=== PATIENT | male | born 1965 | race Caucasian/White ===

== ENCOUNTER 2019-07-16 15:32 | Emergency (ER) | payer MEDICAID, SELFPAY ==
[2019-07-16] VITALS (8 sets, daily range): BP systolic 109–140; BP diastolic 69–89; PULSE 78–96; RESP 16–19; TEMP 36.6; O2SAT 92–97
--- NOTE | 2019-07-16 15:44 | W.ED.GENAD ---
Discharge Plan Disposition Patient Disposition: HOME Condition: Improving Discharge Details Chief Complaint: OD/Poison Clinical Impression: Polysubstance abuse, Back pain Primary Care Provider: Unknown,Unknown ED Provider: Shayy Keller Home Meds and New Rx's Prescriptions: New methocarbamol [Robaxin-750] 750 mg tablet 750 mg PO TID PRN (Reason: muscle spasm) Qty: 10 RF: 0 Discharge Instructions Instructions: Back Pain (ED) Additional Instructions: Alternate Tylenol and Motrin as needed and directed for pain. Take the muscle relaxers as needed and directed. Follow-up with your primary care doctor next week. Return to the emergency department if you develop any worsening or new concerning symptoms. Discharge Data Discharge Physician: Shayy Keller Medical Decision Making 54-year-old male with history of hepatitis C who states he was clean from cocaine and heroin for 8 months and living in a sober house who states he relapsed yesterday with IV heroin and cocaine use. States he has a period yesterday which he does not remember and is unsure of injury. Vitals within normal limits. EKG notes a rate of 98, sinus with no acute ST ischemic changes. Patient with airway intact and able to answer questions but appears mildly drowsy. No obvious head trauma. C-spine and L-spine nontender. Anterior chest tender. Abdomen soft nontender. Moving all extremities without evidence of deformity. As there is a period of time yesterday he does not recall, will obtain CT head/C-spine/chest/abdomen/pelvis/T and L-spine to rule out acute process or trauma, check screening labs including acetaminophen, salicylate, alcohol and UDS and give a dose of Compazine, Ativan and fluids and reassess. 1945 --labs and imaging reviewed and no acute significant findings. Patient was given Toradol and Decadron for his back pain and symptoms improved. He is able to ambulate around the ED. He is advised to drink plenty fluids, get plenty of rest, avoid illicit drug use, follow-up with his primary care doctor return to the ER with any concerns. Medical Records Medical records reviewed: Yes I reviewed the patient's medical records. Imaging Data Radiologic Study: Radiologist's impression: CT Head Without Contrast Exam date and time: 07/16/2019 4:40 PM Clinical history: 54 years old, male; Pain; Other: S/P possible injury TECHNIQUE: Imaging protocol: Computed tomography of the head without contrast. Radiation optimization: All CT scans at this facility use at least one of these dose optimization techniques: automated exposure control; mA and/or kV adjustment per patient size (includes targeted exams where dose is matched to clinical indication); or iterative reconstruction. COMPARISON: No relevant prior studies available. FINDINGS: Brain: Normal. No hemorrhage. No significant white matter disease. No edema.The cortical/white matter interfaces are preserved throughout the brain. Ventricles: Normal. No ventriculomegaly. Bones/joints: There is no evidence of acute fracture. There has been plate and screw fixation of the left superior orbital rim. Sinuses: Visualized sinuses are unremarkable. No fluid levels. Mastoid air cells: Visualized mastoid air cells are well aerated. Soft tissues: Unremarkable. IMPRESSION: No evidence of intracranial hemorrhage or calvarial fracture. CT Cervical Spine Without Contrast Exam date and time: 07/16/2019 4:40 PM Clinical history: 54 years old, male; Pain; Other: S/P possible injury TECHNIQUE: Imaging protocol: Computed tomography images of the cervical spine without contrast. Radiation optimization: All CT scans at this facility use at least one of these dose optimization techniques: automated exposure control; mA and/or kV adjustment per patient size (includes targeted exams where dose is matched to clinical indication); or iterative reconstruction. COMPARISON: No relevant prior studies available. FINDINGS: Limitations: The examination is degraded by motion artifact. Vertebrae: No acute fracture. Normal sagittal alignment. Discs/Spinal canal/Neural foramina: No spinal stenosis. No neural foraminal narrowing. Soft tissues: The prevertebral soft tissues are normal. Lungs: There is pleural scarring in the lung apices. IMPRESSION: No definite evidence of fracture or dislocation, however, the examination is degraded by motion artifact. CT Angiography Chest With Contrast Exam date and time: 07/16/2019 4:50 PM Clinical history: 54 years old, male; Pain; Other: S/P possible injury TECHNIQUE: Imaging protocol: Computed tomographic angiography of the chest with intravenous contrast. 3D rendering: MIP reconstructed images were created and reviewed. Radiation optimization: All CT scans at this facility use at least one of these dose optimization techniques: automated exposure control; mA and/or kV adjustment per patient size (includes targeted exams where dose is matched to clinical indication); or iterative reconstruction. Contrast material: OMNIPAQUE 350; Contrast volume: 100 ml; Contrast route: IV; COMPARISON: No relevant prior studies available. FINDINGS: Limitations: The examination is degraded by motion artifact. Pulmonary arteries: There are no intraluminal filling defects in the pulmonary arteries. Aorta: The aorta is normal in caliber with no evidence of aneurysm or dissection. There is pulsation artifact at the level of the aortic root. Lungs: There are no focal air space opacities. Pleural space: There is biapical pleural thickening. There is no evidence of pneumothorax.No evidence of a pleural effusion. Heart: Unremarkable. No cardiomegaly. No pericardial effusion. Mediastinum: No evidence of a mediastinal hematoma. The trachea and main bronchi are patent. The esophagus is unremarkable. Lymph nodes: Unremarkable. No enlarged lymph nodes. Bones/joints: There are healed or healing fractures of the fourth ribs bilaterally.The spine demonstrates mild degenerative changes at multiple levels. There is an S-shaped scoliosis.No acute osseous abnormality is identified. Soft tissues: Unremarkable. IMPRESSION: 1. There is no evidence of mediastinal hematoma, pneumothorax, pleural effusion or pulmonary contusion. 2. There is no evidence of acute fracture. Remainder of non-emergent findings as described above. CT Abdomen And Pelvis With Contrast Exam date and time: 07/16/2019 4:50 PM Clinical history: 54 years old, male; Pain; Other: S/P possible injury TECHNIQUE: Imaging protocol: Computed tomography of the abdomen and pelvis with intravenous contrast. Radiation optimization: All CT scans at this facility use at least one of these dose optimization techniques: automated exposure control; mA and/or kV adjustment per patient size (includes targeted exams where dose is matched to clinical indication); or iterative reconstruction. COMPARISON: No relevant prior studies available. FINDINGS: Limitations: The examination is degraded by motion artifact. Liver: There are no focal hepatic lesions.No evidence of laceration or subcapsular collection. Gallbladder and bile ducts: Normal. No calcified stones. No ductal dilation. Pancreas: Normal. No ductal dilation. Spleen: The spleen is normal. No evidence of laceration or subcapsular collection. Adrenals: Normal. No mass. Kidneys and ureters: The left kidney demonstrates an extrarenal pelvis. 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 The kidneys are otherwise unremarkable.No evidence of laceration or subcapsular collection. Stomach and bowel: Unremarkable. No obstruction. No mucosal thickening. Appendix: No evidence of appendicitis. Intraperitoneal space: Unremarkable. No free air. No significant fluid collection. Retroperitoneal space: No retroperitoneal hemorrhage. Vasculature: The aorta is normal in caliber.The vasculature demonstrates diffuse mild atherosclerotic calcification. Lymph nodes: There are multiple small and mildly enlarged retroperitoneal lymph nodes measuring up to 13 mm short axis dimension (34/7). Bladder: Unremarkable as visualized. Reproductive: Unremarkable as visualized. 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 There is degenerative disc disease L5-S1 with reactive endplate sclerosis, endplate erosions and small marginal osteophytes.The remaining skeletal structures show no evidence of acute fracture or other acute process. There is no evidence of acute fracture. Soft tissues: There is a small uncomplicated fat-containing umbilical hernia. IMPRESSION: 1. No evidence of visceral trauma. 2. There is no evidence of acute fracture. Remainder of non-emergent findings as described above. Lab Data Lab results reviewed: Yes I reviewed the patient's lab results. Labs: Laboratory Tests Range/Units 07/16/19 07/16/19 07/16/19 16:00 16:00 16:00 WBC (4.4-10.8) k/cumm 9.67 RBC (4.50-6.00) m/cumm 4.61 Hgb (13.5-17.5) g/dL 14.6 Hct (40.0-50.0) % 41.9 MCV (80-95) fL 90.9 MCH (27.0-33.0) pg 31.7 MCHC (32.0-36.0) g/dL 34.8 RDW (11.8-14.1) % 12.5 Plt Count (130-400) x1000/uL 115 L MPV (8.0-11.0) fL 10.5 Immature Gran % 0.1 Neutrophils % 85.4 Lymphocytes % 8.8 Monocytes % 5.5 Eosinophils % 0.0 Basophils % 0.2 Absolute Neutrophils (1.2-6.7) k/cumm 8.26 H Absolute Lymphocytes (1.2-3.4) k/cumm 0.85 L Absolute Monocytes (0.11-0.7) k/cumm 0.53 Absolute Eosinophils (0.0-0.7) k/cumm 0.00 Absolute Basophils (0.0-0.2) k/cumm 0.02 Sodium (136-145) mmol/L 139 Potassium (3.5-5.1) mmol/L 4.2 Chloride (98-107) mmol/L 102 Carbon Dioxide (21.0-32.0) mmol/L 30.0 Anion Gap (3-11) mmol/L 7.0 BUN (7-18) mg/dL 31 H Creatinine (0.70-1.30) mg/dL 1.08 Estimated GFR/1.73 m2 (mL/min/1.73m2) >= 60.00 Glucose (70-100) mg/dL 106 H Calcium (8.5-10.1) mg/dL 9.5 Magnesium (1.8-2.4) mg/dL 1.7 L Total Bilirubin (0.2-1.0) mg/dL 2.0 H AST (15-37) U/L 102 H ALT (16-63) U/L 40 Alkaline Phosphatase (46-116) U/L 45 L Troponin I (0.00-0.06) ng/mL < 0.05 Total Protein (6.4-8.2) g/dL 8.3 H Albumin (3.4-5.0) g/dL 4.1 Urine Color (Yellow) Urine Clarity (Clear) Urine pH (5-8) Ur Specific [place] (1.005-1.025) Urine Protein (Negative) mg/dL Urine Ketones (Negative) mg/dL Urine Blood (Negative) Urine Nitrite (Negative) Urine Bilirubin (Negative) Urine Urobilinogen (Up TO 0.2) EU/dL Ur Leukocyte Esterase (Negative) Urine RBC (0-2) Urine WBC (0-5) HPF Ur Epithelial Cells (Negative) HPF Urine Crystals (Negative) HPF Urine Bacteria (Negative) HPF Urine Casts (Negative) LPF Urine Mucus (Negative) Ur Culture Indicated? Urine Glucose (Negative) mg/dL Salicylates (2.8-20.0) mg/dL < 2.8 L Urine Opiates Screen (Negative) Urine Methadone Screen (Negative) Acetaminophen (10-30) ug/mL < 2 L Ur Barbiturates Screen (Negative) Ur Tricyclics Screen (Negative) Ur Amphetamines Screen (Negative) U Benzodiazepines Scrn (Negative) Urine Cocaine Screen (Negative) Ur THC Screen (Negative) Ethyl Alcohol (<3) mg/dL < 3.0 Range/Units 07/16/19 07/16/19 18:51 18:51 WBC (4.4-10.8) k/cumm RBC (4.50-6.00) m/cumm Hgb (13.5-17.5) g/dL Hct (40.0-50.0) % MCV (80-95) fL MCH (27.0-33.0) pg MCHC (32.0-36.0) g/dL RDW (11.8-14.1) % Plt Count (130-400) x1000/uL MPV (8.0-11.0) fL Immature Gran % Neutrophils % Lymphocytes % Monocytes % Eosinophils % Basophils % Absolute Neutrophils (1.2-6.7) k/cumm Absolute Lymphocytes (1.2-3.4) k/cumm Absolute Monocytes (0.11-0.7) k/cumm Absolute Eosinophils (0.0-0.7) k/cumm Absolute Basophils (0.0-0.2) k/cumm Sodium (136-145) mmol/L Potassium (3.5-5.1) mmol/L Chloride (98-107) mmol/L Carbon Dioxide (21.0-32.0) mmol/L Anion Gap (3-11) mmol/L BUN (7-18) mg/dL Creatinine (0.70-1.30) mg/dL Estimated GFR/1.73 m2 (mL/min/1.73m2) Glucose (70-100) mg/dL Calcium (8.5-10.1) mg/dL Magnesium (1.8-2.4) mg/dL Total Bilirubin (0.2-1.0) mg/dL AST (15-37) U/L ALT (16-63) U/L Alkaline Phosphatase (46-116) U/L Troponin I (0.00-0.06) ng/mL Total Protein (6.4-8.2) g/dL Albumin (3.4-5.0) g/dL Urine Color (Yellow) Yellow Urine Clarity (Clear) Clear Urine pH (5-8) 6.5 Ur Specific [place] (1.005-1.025) <= 1.005 Urine Protein (Negative) mg/dL 30 H Urine Ketones (Negative) mg/dL 15 H Urine Blood (Negative) Moderate H Urine Nitrite (Negative) Negative Urine Bilirubin (Negative) Negative Urine Urobilinogen (Up TO 0.2) EU/dL 0.2 Ur Leukocyte Esterase (Negative) Negative Urine RBC (0-2) 20-50 H Urine WBC (0-5) HPF Negative Ur Epithelial Cells (Negative) HPF Few Urine Crystals (Negative) HPF Negative Urine Bacteria (Negative) HPF Negative Urine Casts (Negative) LPF Negative Urine Mucus (Negative) Negative Ur Culture Indicated? No Urine Glucose (Negative) mg/dL Negative Salicylates (2.8-20.0) mg/dL Urine Opiates Screen (Negative) Negative Urine Methadone Screen (Negative) Negative Acetaminophen (10-30) ug/mL Ur Barbiturates Screen (Negative) Negative Ur Tricyclics Screen (Negative) Negative Ur Amphetamines Screen (Negative) Negative U Benzodiazepines Scrn (Negative) Negative Urine Cocaine Screen (Negative) Positive A Ur THC Screen (Negative) Negative Ethyl Alcohol (<3) mg/dL ECG Data Attestation: I personally reviewed and interpreted this ECG (s) as follows: Interpretation: Rate of 98, sinus, no acute ST elevation or depression. CO 136. QTc 462. QRS 94. HPI General Mode of arrival: ambulatory. Date/Time Provider Initiated Documentation: 07/16/19 16:00. Limitations to Documentation: no limitations. Information obtained by: patient. HPI Narrative: Patient is a 54-year-old male with a history of hepatitis C who has been sober from cocaine and heroin for the past 8 months and living in a sober house presents after relapse with heroin and cocaine since yesterday. Patient states he injected heroin last night and injected cocaine this morning and also injected heroin 2 hours ago prior to arrival. He denies any other drug use or alcohol use. He states he remembers going with people he does not know sometime on Sunday night and does not recall anything about yesterday until late evening when his memory is fuzzy and he was laying in a bed in someone's house and could not get up due to headache and nausea. Patient states today he attempted to get out of the same bed and felt dizzy and pressure in his chest. He states that he mainly feels nauseous, with headache and lower back pain. He denies any chest pain at present. He denies any known injury. He states he was able to ambulate out of this house today and go to a nearby house and called 911. Related Data Home Medications Medication Instructions Recorded Confirmed methocarbamol [Robaxin-750] 750 mg PO TID PRN #10 tab 07/16/19 Previous Rx's Medication Instructions Recorded methocarbamol [Robaxin-750] 750 mg PO TID PRN #10 tab 07/16/19 Allergies Allergy/AdvReac Type Severity Reaction Status Date / Time acetaminophen [From Vicodin] Allergy Nausea Unverified 07/16/19 15:42 hydrocodone [From Vicodin] Allergy Nausea Unverified 07/16/19 15:42 shellfish derived Allergy Anaphylaxsi Unverified 07/16/19 15:42 s General Stated Complaint: OD/Poison LIONEL: 3 Review of Systems Review of Systems ROS Unobtainable: All systems reviewed & are unremarkable except as noted in HPI and below Constitutional Constitutional: Reports as per HPI, Denies chills, Reports fatigue, Denies fever(s) and Reports headache(s) Eyes Eyes: Denies blurry vision ENT Ears, Nose, Mouth, and Throat: Denies dizziness, Reports headache(s), Denies sore throat and Denies throat swelling Cardiovascular Cardiovascular: Reports chest pain and Denies dyspnea Respiratory Respiratory: Denies cough and Denies dyspnea Gastrointestinal Gastrointestinal: Denies abdominal pain, Denies diarrhea and Denies vomiting Genitourinary Genitourinary: Denies hematuria and Denies dysuria Musculoskeletal Musculoskeletal: Reports back pain and Denies numbness Integumentary/Breasts Skin/Breast: Denies lesions and Denies rash Neurologic Neurologic: Denies dizziness, Reports headache(s), Denies focal weakness and Denies numbness Endocrine Endocrine: Reports fatigue Allergic/Immunologic Allergic/Immunologic: Denies throat swelling [facility] Medical History (Updated 07/16/19 @ 16:04 by Shayy Keller DO) Hepatitis C (Chronic) Surgical History (Updated 07/16/19 @ 16:05 by Shayy Keller DO) History of craniotomy (Acute) History of facial surgery (Acute) Social History Smoking/Tobacco Use Status: Current every day Alcohol Intake: never Substance use type: marijuana, crack/cocaine and heroin Do you feel safe in your relationship?: Yes Exam Const General: cooperative and no acute distress Orientation: alert, awake and oriented x3 HENMT Head: normal to inspection Ears: hearing grossly normal bilaterally, external ears normal and TM's normal bilaterally General nose exam: external nose normal Face and sinus: normal facial exam Mouth: oral mucosae normal Teeth and gingiva: dentition normal Throat: posterior oropharynx normal Eyes General: appearance normal, both eyes and all related structures Eyelids: eyelids normal Pupils: PERRL EOM: EOM intact bilaterally Neck Neck: normal visual inspection Lymphatic: no lymphadenopathy noted Chest Chest: normal inspection of the chest and tenderness (Left and right anterior) Resp Effort & Inspection: normal respiratory effort and able to speak in complete sentences Auscultation: clear to auscultation bilaterally Cardio Rate: regular rate Rhythm: regular rhythm GI Inspection: normal to inspection and no abdominal wall ecchymosis Palpation: soft, not firm, no guarding, no hepatosplenomegaly, no masses and nontender Auscultation: normal bowel sounds Back/Spine/Pelvis Back: no CVA tenderness Cervical Spine: cervical spinal tenderness Thoracic/Lumbar Spine: No thoracic spinal tenderness and lumbar spinal tenderness Pelvis: no pain with anterior-posterior compression Skin General skin exam: no rashes or lesions noted Neuro General: alert and awake Cognition: normal cognition Speech: speech normal Gait: normal gait Motor: muscle tone normal throughout Sensory Exam: no sensory deficits noted Extrem General: normal to inspection, full ROM and normal capillary refill Other: Full range of motion bilateral upper and lower extremities without significant trauma or deformity noted. Some left anterior hip pain with range of motion. Well-healed scar infusion right anterior ankle without new trauma noted. Bilateral distal pulses intact. Psych Appearance: grossly normal Mental Status: mental status grossly normal Speech and Movement: speech and movement normal Affect: normal affect Thought Process: normal Course Vital Signs Vital signs: Vital Signs Temperature 97.9 F 07/16/19 15:31 Pulse 96 H 07/16/19 15:31 Respiratory Rate 18 07/16/19 15:31 Blood Pressure 126/89 07/16/19 15:31 Pulse Oximetry 97 07/16/19 15:31 Temperature 97.9 F 07/16/19 15:31 Temperature Source Skin 07/16/19 15:31 Pulse 96 H 07/16/19 15:31 Respiratory Rate 18 07/16/19 15:40 Respiratory Effort Non-Labored 07/16/19 15:40 Respiratory Depth Normal 07/16/19 15:40 Respiratory Pattern Normal 07/16/19 15:40 Blood Pressure 126/89 07/16/19 15:31 Blood Pressure Position Supine 07/16/19 15:31 Pulse Oximetry 97 07/16/19 15:31 Oxygen Delivery Method Room Air 07/16/19 15:31 Oxygen Flow Rate 0 07/16/19 15:31
--- NOTE | 2019-07-16 15:51 | NUR.NOTE ---
Nursing Note: MD Keller at bedside
--- NOTE | 2019-07-16 15:52 | NUR.NOTE ---
Nursing Note: Difficulty obtaining IV access. Additional RN at bedside with ultrasound
[2019-07-16] MEDS: LORazepam 2 MG/ML VIAL 0.5 MG IVP (16:14)
[2019-07-16] MEDS: Prochlorperazine 10 MG/2 ML VIAL IVP (16:14)
[2019-07-16] MEDS: Normal Saline 1,000 ML 1000 ML IV (16:15)
[2019-07-16 16:16] LABS: Abs Immature Grans 0.01 k/cumm (0.0-0.09); Absolute Basophil Count 0.02 k/cumm (0.0-0.2); Absolute Lymphocyte Count 0.85 k/cumm (1.2-3.4); Absolute Monocyte Count 0.53 k/cumm (0.11-0.7); Absolute Neutrophil Count 8.26 k/cumm (1.2-6.7); Basophils % 0.2; HCT 41.9 % (40.0-50.0); HGB 14.6 g/dL (13.5-17.5); Immature Grans % 0.1; Lymphocytes % 8.8; Mean Corp. HGB Concentration 34.8 g/dL (32.0-36.0); Mean Corpuscular Hemoglobin 31.7 pg (27.0-33.0); Mean Corpuscular Volume 90.9 fL (80-95); Mean Platelet Volume 10.5 fL (8.0-11.0); Monocytes % 5.5; Neutrophils % 85.4; Platelet Count 115 x1000/uL (130-400); RBC 4.61 m/cumm (4.50-6.00); RBC Distribution Width 12.5 % (11.8-14.1); White Blood Cell Count 9.67 k/cumm (4.4-10.8)
--- NOTE | 2019-07-16 16:30 | NUR.NOTE ---
Nursing Note: pt to ct with RN on monitor.
[2019-07-16 16:32] LABS: ALT 40 U/L (16-63); AST 102 U/L (15-37); Albumin 4.1 g/dL (3.4-5.0); Alkaline Phosphatase 45 U/L (46-116); BUN 31 mg/dL (7-18); CREATININE 1.08 mg/dL (0.70-1.30); Calcium 9.5 mg/dL (8.5-10.1); Chloride 102 mmol/L (98-107); Glucose 106 mg/dL (70-100); Magnesium 1.7 mg/dL (1.8-2.4); Potassium 4.2 mmol/L (3.5-5.1); Sodium 139 mmol/L (136-145); Total Protein 8.3 g/dL (6.4-8.2)
[2019-07-16 16:35] LABS: Troponin I < 0.05 ng/mL (0.00-0.06)
[2019-07-16] MEDS: Omnipaque 350 MG/ML 100 ML BTL IJ (16:57)
--- NOTE | 2019-07-16 17:00 | DI.CT_ITS ---
EXAM: CT CHEST PE ABD PELVIS W CLINICAL HISTORY: s/p possible fall, r/o acute process. TECHNIQUE: Post IV contrast. No oral contrast. COMPARISON: No exams were available for comparison FINDINGS: The exam is limited by patient motion. The patient was unable to cooperate with the exam. No gross pulmonary emboli are seen. The heart size is normal. The aorta is normal in diameter. The re is no pneumothorax, pleural or pericardial effusions. No acute rib or thoracic spine fracture is visible. Scoliosis is present. There is no evidence of liver, splenic or renal lacerations or contusions. There is no free air or f ree fluid. There is no bowel dilatation. The bladder appears intact. The pancreas, gallbladder and adrenals are unremarkable. The abdominal aorta and iliac arteries appear intact. L5 spondylolysis and slight spondylolisthesis is present. This is likely old. There is no acute spinal or pelvic fra cture. IMPRESSION: No acute abnormality in the chest, abdomen or pelvis.
--- NOTE | 2019-07-16 17:00 | DI.CT_ITS ---
EXAM: CT HEAD CERVICAL SPINE WO CLINICAL HISTORY: s/p possible injury, r/o acute process. TECHNIQUE: Noncontrast COMPARISON: No exams were available for comparison. FINDINGS: Head CT: No intracranial hemorrhage or skull fracture is seen. The ventricles are normal in size. T he sinuses and mastoid air cells appear clear. Cervical spine CT: The exam is limited by motion artifact. No fracture or subluxation is seen. The re are mild degenerative disc changes. IMPRESSION: Negative head CT. Limited exam due to motion artifact. No evidence of fracture.
[2019-07-16 17:05] LABS: Salicylate < 2.8 mg/dL (2.8-20.0)
[2019-07-16 17:10] LABS: ETHANOL BLOOD < 3.0 mg/dL (<3)
--- NOTE | 2019-07-16 17:25 | DI.VRAD_ITS ---
PROCEDURE INFORMATION: Exam: CT Head Without Contrast Exam date and time: 07/16/2019 4:40 PM Clinical history: 54 years old, male; Pain; Other: S/P possible injury TECHNIQUE: Imaging protocol: Computed tomography of the head without contrast. Radiation optimization: All CT scans at this facility use at least one of these dose optimization techniques: automated exposure control; mA and/or kV adjustment per patient size (includes targeted exams where dose is matched to clinical indication); or iterative reconstruction. COMPARISON: No relevant prior studies available. FINDINGS: Brain: Normal. No hemorrhage. No significant white matter disease. No edema.The cortical/white matter interfaces are preserved throughout the brain. Ventricles: Normal. No ventriculomegaly. Bones/joints: There is no evidence of acute fracture. There has been plate and screw fixation of the left superior orbital rim. Sinuses: Visualized sinuses are unremarkable. No fluid levels. Mastoid air cells: Visualized mastoid air cells are well aerated. Soft tissues: Unremarkable. IMPRESSION: No evidence of intracranial hemorrhage or calvarial fracture. PROCEDURE INFORMATION: Exam: CT Cervical Spine Without Contrast Exam date and time: 07/16/2019 4:40 PM Clinical history: 54 years old, male; Pain; Other: S/P possible injury TECHNIQUE: Imaging protocol: Computed tomography images of the cervical spine without contrast. Radiation optimization: All CT scans at this facility use at least one of these dose optimization techniques: automated exposure control; mA and/or kV adjustment per patient size (includes targeted exams where dose is matched to clinical indication); or iterative reconstruction. COMPARISON: No relevant prior studies available. FINDINGS: Limitations: The examination is degraded by motion artifact. Vertebrae: No acute fracture. Normal sagittal alignment. Discs/Spinal canal/Neural foramina: No spinal stenosis. No neural foraminal narrowing. Soft tissues: The prevertebral soft tissues are normal. Lungs: There is pleural scarring in the lung apices. IMPRESSION: No definite evidence of fracture or dislocation, however, the examination is degraded by motion artifact. Dictated and Authenticated by: Micaela Rocha MD. Ordering:JAMEE Lucas MD
--- NOTE | 2019-07-16 17:39 | DI.VRAD_ITS ---
PROCEDURE INFORMATION: Exam: CT Angiography Chest With Contrast Exam date and time: 07/16/2019 4:50 PM Clinical history: 54 years old, male; Pain; Other: S/P possible injury TECHNIQUE: Imaging protocol: Computed tomographic angiography of the chest with intravenous contrast. 3D rendering: MIP reconstructed images were created and reviewed. Radiation optimization: All CT scans at this facility use at least one of these dose optimization techniques: automated exposure control; mA and/or kV adjustment per patient size (includes targeted exams where dose is matched to clinical indication); or iterative reconstruction. Contrast material: OMNIPAQUE 350; Contrast volume: 100 ml; Contrast route: IV; COMPARISON: No relevant prior studies available. FINDINGS: Limitations: The examination is degraded by motion artifact. Pulmonary arteries: There are no intraluminal filling defects in the pulmonary arteries. Aorta: The aorta is normal in caliber with no evidence of aneurysm or dissection. There is pulsation artifact at the level of the aortic root. Lungs: There are no focal air space opacities. Pleural space: There is biapical pleural thickening. There is no evidence of pneumothorax.No evidence of a pleural effusion. Heart: Unremarkable. No cardiomegaly. No pericardial effusion. Mediastinum: No evidence of a mediastinal hematoma. The trachea and main bronchi are patent. The esophagus is unremarkable. Lymph nodes: Unremarkable. No enlarged lymph nodes. Bones/joints: There are healed or healing fractures of the fourth ribs bilaterally.The spine demonstrates mild degenerative changes at multiple levels. There is an S-shaped scoliosis.No acute osseous abnormality is identified. Soft tissues: Unremarkable. IMPRESSION: 1. There is no evidence of mediastinal hematoma, pneumothorax, pleural effusion or pulmonary contusion. 2. There is no evidence of acute fracture. Remainder of non-emergent findings as described above. PROCEDURE INFORMATION: Exam: CT Abdomen And Pelvis With Contrast Exam date and time: 07/16/2019 4:50 PM Clinical history: 54 years old, male; Pain; Other: S/P possible injury TECHNIQUE: Imaging protocol: Computed tomography of the abdomen and pelvis with intravenous contrast. Radiation optimization: All CT scans at this facility use at least one of these dose optimization techniques: automated exposure control; mA and/or kV adjustment per patient size (includes targeted exams where dose is matched to clinical indication); or iterative reconstruction. COMPARISON: No relevant prior studies available. FINDINGS: Limitations: The examination is degraded by motion artifact. Liver: There are no focal hepatic lesions.No evidence of laceration or subcapsular collection. Gallbladder and bile ducts: Normal. No calcified stones. No ductal dilation. Pancreas: Normal. No ductal dilation. Spleen: The spleen is normal. No evidence of laceration or subcapsular collection. Adrenals: Normal. No mass. Kidneys and ureters: The left kidney demonstrates an extrarenal pelvis. 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 The kidneys are otherwise unremarkable.No evidence of laceration or subcapsular collection. Stomach and bowel: Unremarkable. No obstruction. No mucosal thickening. Appendix: No evidence of appendicitis. Intraperitoneal space: Unremarkable. No free air. No significant fluid collection. Retroperitoneal space: No retroperitoneal hemorrhage. Vasculature: The aorta is normal in caliber.The vasculature demonstrates diffuse mild atherosclerotic calcification. Lymph nodes: There are multiple small and mildly enlarged retroperitoneal lymph nodes measuring up to 13 mm short axis dimension (34/7). Bladder: Unremarkable as visualized. Reproductive: Unremarkable as visualized. 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 There is degenerative disc disease L5-S1 with reactive endplate sclerosis, endplate erosions and small marginal osteophytes.The remaining skeletal structures show no evidence of acute fracture or other acute process. There is no evidence of acute fracture. Soft tissues: There is a small uncomplicated fat-containing umbilical hernia. IMPRESSION: 1. No evidence of visceral trauma. 2. There is no evidence of acute fracture. Remainder of non-emergent findings as described above. Dictated and Authenticated by: Micaela Rocha MD. Ordering:JAMEE Lucas MD
[2019-07-16 17:51] LABS: Acetaminophen < 2 ug/mL (10-30)
--- NOTE | 2019-07-16 18:42 | NUR.NOTE ---
Nursing Note: pt requesting that we call Jovana at [phone]. no answer.
--- NOTE | 2019-07-16 18:50 | NUR.NOTE ---
Nursing Note: pt screaming and belligerent in room. Yelling, this fucking blood pressure cuff is going off and twisting my fucking arm off!!!.
[2019-07-16] MEDS: Dexamethasone 10 MG/ML VIAL IVP (18:56)
[2019-07-16] MEDS: Ketorolac 30 MG/ML VIAL IVP (18:56)
--- NOTE | 2019-07-16 19:01 | NUR.NOTE ---
Nursing Note: pt given cell phone to call aurelia
[2019-07-16 19:05] LABS: Bilirubin Negative (Negative); Blood Moderate (Negative); Clarity Clear (Clear); Glucose Negative (Negative); Ketones 15 mg/dL (Negative); Leukocyte Esterase Negative (Negative); Nitrite Negative (Negative); Specific Gravity <= 1.005 (1.005-1.025); Urobilinogen 0.2 EU/dL (Up TO 0.2); pH 6.5 (5-8)
[2019-07-16 19:20] LABS: Bacteria Negative HPF (Negative); C & S Indicated? No; Casts Negative LPF (Negative); Crystals Negative HPF (Negative); Epithelial Cells Few HPF (Negative); Mucus Negative (Negative); RBC 20-50 (0-2); WBC Negative HPF (0-5)
--- NOTE | 2019-07-16 19:30 | NUR.NOTE ---
Nursing Note: pt resting in stretcher. sleeping, no signs of distress. vss. slow and even respirations noted.
[2019-07-16 19:33] LABS: *AMPHETAMINES SCREEN URINE Negative (Negative); *BARBITURATES SCREEN URINE Negative (Negative); *BENZODIAZEPINES SCREEN URINE Negative (Negative); Cannabinoids THC Negative (Negative); Cocaine Screen,Urine POSITIVE (Negative); METHADONE URINE SCREEN Negative (Negative); OPIATES URINE SCREEN Negative (Negative)
[2019-07-16 19:34] LABS: Tricyclic Antidepressants Negative (Negative)
--- NOTE | 2019-07-16 20:31 | NUR.NOTE ---
Nursing Note: report given to vik
== END 2019-07-16 20:55 | disposition home or self-care (01) ==
PROVIDERS: Emergency Provider Physician Assistant
DX: R51 Headache (principal); R11.2 Nausea with vomiting, unspecified; F19.10 Other psychoactive substance abuse, uncomplicated; M54.6 Pain in thoracic spine
CPT/HCPCS: 36415; 71275; 74177; 80053; 80307; 93005; 96361; 96374; 96375; 99285; 70450; 72125; 80320; 80329; 81003; 81015; 83735; 84484; 85025; 93010; J0780; J1100; J1885; J2060; J3490